=== PATIENT | male | born 1960 | race Caucasian/White ===

== ENCOUNTER → 2024-10-25 10:14 | Outpatient (REF) | payer BC, SELFPAY | LOC: RAD 10:14 | PROVIDERS: ATTENDING PHYSICIAN Neurological Surgery; FAMILY PHYSICIAN Family Medicine | DX: M43.16 Spondylolisthesis, lumbar region (principal) | CPT/HCPCS: 72110 ==

== ENCOUNTER → 2024-10-27 13:50 | Outpatient (REF) | payer BC, SELFPAY | LOC: MRI 3T 13:50 | PROVIDERS: ATTENDING PHYSICIAN Neurological Surgery; FAMILY PHYSICIAN Family Medicine | DX: M43.16 Spondylolisthesis, lumbar region (principal) | CPT/HCPCS: 72148 ==